=== PATIENT | male | born 1995 | race African-American/Black ===

== ENCOUNTER 2018-09-26 16:23 | Emergency (ER) | payer MEDICAID ==
[~2018-09-26] VITALS: Ht 172.7 cm; Wt 75.0 kg
[2018-09-26] MEDS ORDERED: SODIUM CHLORIDE 0.9% 1,000 ML IV ONE (16:48)
[2018-09-26 17:23] LABS: BASOPHILS % 0.4 % (0.0-2.0); EOSINOPHILS % 0.3 % (0.0-5.0); HEMOGLOBIN. 16.3 g/dL (14.0-18.0); LYMPHOCYTES % 14.4 % (20.0-50.0); MEAN CORPUSCULAR HEMOGLOBIN 28.7 pg (28.0-32.0); MEAN CORPUSCULAR VOLUME 86.2 fL (80.0-94.0); MEAN PLATELET VOLUME 8.8 fl (7.4-10.4); MONOCYTES % 6.1 % (2.0-8.0); NEUTROPHILS % 78.8 % (40.0-76.0); PLATELET 185 x1000/uL (130-400); RED BLOOD CELL COUNT 5.68 mill/uL (4.7-6.1); RED CELL DISTRIBUTION WIDTH 14.8 % (11.6-14.6)
[2018-09-26 17:27] LABS: CHLORIDE 108 mEq/L (98-107)
[2018-09-26] MEDS ORDERED: LORAZEPAM 2MG/ML CPJ IM ONE (17:30)
[2018-09-26] MEDS ORDERED: DIPHENHYDRAMINE 50MG/ML VIAL IM ONE (17:30)
[2018-09-26] MEDS ORDERED: ZIPRASIDONE MESYLATE 20MG/VIAL IM ONE (17:30)
[2018-09-26 17:33] LABS: ETHANOL BLOOD < 10 mg/dL
[2018-09-26] MEDS ORDERED: DIPHENHYDRAMINE 50MG/ML VIAL ONE (17:51)
[2018-09-27 02:57] LABS: *AMPHETAMINES SCREEN URINE PRESUMTIVE POSITIVE (NEGATIVE); *BARBITURATES SCREEN URINE NEGATIVE (NEGATIVE); *BENZODIAZEPINES SCREEN URINE NEGATIVE (NEGATIVE); *COCAINE SCREEN URINE NEGATIVE (NEGATIVE)
[2018-09-27 02:58] LABS: CANNABINOID URINE SCREEN PRESUMTIVE POSITIVE (NEGATIVE); METHADONE URINE SCREEN NEGATIVE (NEGATIVE); OPIATES URINE SCREEN PRESUMTIVE POSITIVE (NEGATIVE); PHENCYCLIDINE URINE SCREEN PRESUMTIVE POSITIVE (NEGATIVE)
[2018-09-27 03:26] LABS: CLARITY URINE CLEAR (CLEAR); COLOR URINE YELLOW (YELLOW); KETONES URINE NEGATIVE (NEGATIVE); LEUKOCYTE ESTERASE URINE 1+ (NEGATIVE); NITRITE URINE NEGATIVE (NEGATIVE); OCCULT BLOOD URINE NEGATIVE (NEGATIVE); PROTEIN URINE NEGATIVE (NEGATIVE); SPECIFIC GRAVITY URINE 1.018 (1.005-1.030)
[2018-09-27] MEDS ORDERED: LORAZEPAM 1MG TABLET PO ONE (03:30)
[2018-09-27 04:30] VITALS: BP 122/67
== END 2018-09-27 05:34 | disposition home or self-care (01) ==
LOC: ER 16:23
DX: T65.91XA Toxic effect of unspecified substance, accidental (unintentional), initial encounter (principal); F12.10 Cannabis abuse, uncomplicated; F19.10 Other psychoactive substance abuse, uncomplicated; F11.10 Opioid abuse, uncomplicated; F15.10 Other stimulant abuse, uncomplicated; Y92.89 Other specified places as the place of occurrence of the external cause
CPT/HCPCS: 36415; 80053; 80305; 81003; 85025; 96361; 96372; 99284; G0482; J1200; J2060; J3486; J7030; A4315

== ENCOUNTER 2018-09-27 16:22 | Emergency (ER) | payer MEDICAID ==
[~2018-09-27] VITALS: Ht 172.7 cm; Wt 75.0 kg
[2018-09-27] MEDS ORDERED: LORAZEPAM 2MG/ML CPJ IM STA (16:28)
[2018-09-27] MEDS ORDERED: DIPHENHYDRAMINE 50MG/ML VIAL IM STA (16:28)
[2018-09-27] MEDS ORDERED: ZIPRASIDONE MESYLATE 20MG/VIAL IM STA (16:28)
[2018-09-27 17:38] LABS: BASOPHILS % 0.3 % (0.0-2.0); EOSINOPHILS % 0.2 % (0.0-5.0); HEMATOCRIT. 47.9 % (42.0-52.0); HEMOGLOBIN. 15.7 g/dL (14.0-18.0); LYMPHOCYTES % 17.5 % (20.0-50.0); MEAN CORPUSCULAR HEMOGLOBIN 28.5 pg (28.0-32.0); MEAN PLATELET VOLUME 8.9 fl (7.4-10.4); MONOCYTES % 6.9 % (2.0-8.0); NEUTROPHILS % 75.1 % (40.0-76.0); PLATELET 185 x1000/uL (130-400); RED BLOOD CELL COUNT 5.51 mill/uL (4.7-6.1); RED CELL DISTRIBUTION WIDTH 14.9 % (11.6-14.6)
[2018-09-27 17:45] LABS: CHLORIDE 108 mEq/L (98-107)
[2018-09-27 17:47] LABS: *AMPHETAMINES SCREEN URINE PRESUMTIVE POSITIVE (NEGATIVE); *BARBITURATES SCREEN URINE NEGATIVE (NEGATIVE)
[2018-09-27 17:48] LABS: *BENZODIAZEPINES SCREEN URINE NEGATIVE (NEGATIVE); *COCAINE SCREEN URINE NEGATIVE (NEGATIVE); METHADONE URINE SCREEN NEGATIVE (NEGATIVE); OPIATES URINE SCREEN PRESUMTIVE POSITIVE (NEGATIVE); PHENCYCLIDINE URINE SCREEN PRESUMTIVE POSITIVE (NEGATIVE)
[2018-09-27 17:50] LABS: ETHANOL BLOOD < 10 mg/dL
[2018-09-27 18:00] LABS: CANNABINOID URINE SCREEN PRESUMTIVE POSITIVE (NEGATIVE)
[2018-09-27 22:30] VITALS: BP 112/57
== END 2018-09-28 00:49 | disposition home or self-care (01) ==
LOC: ER 16:22
DX: F19.10 Other psychoactive substance abuse, uncomplicated (principal); F12.10 Cannabis abuse, uncomplicated; F15.10 Other stimulant abuse, uncomplicated; F11.10 Opioid abuse, uncomplicated; F16.10 Hallucinogen abuse, uncomplicated
CPT/HCPCS: 36415; 80053; 80305; 85025; 96372; 99283; G0482; J1200; J2060; J3486

== ENCOUNTER 2020-12-14 04:29 | Emergency (ER) | payer MEDICAID ==
[~2020-12-14] VITALS: Ht 170.2 cm; Wt 73.0 kg
[2020-12-14 05:44] LABS: BASOPHILS % 0.6 % (0.0-2.0); HEMOGLOBIN. 13.5 g/dL (14.0-18.0); MEAN CORPUSCULAR HEMOGLOBIN 28.5 pg (28.0-32.0); MEAN CORPUSCULAR VOLUME 84.2 fL (80.0-94.0); MEAN PLATELET VOLUME 9.2 fl (7.4-10.4); MONOCYTES % 10.4 % (2.0-8.0); PLATELET 169 x1000/uL (130-400); RED BLOOD CELL COUNT 4.75 mill/uL (4.7-6.1); RED CELL DISTRIBUTION WIDTH 14.5 % (11.6-14.6)
[2020-12-14 05:49] LABS: CHLORIDE 106 mEq/L (98-107)
[2020-12-14 05:53] LABS: ETHANOL BLOOD < 10 mg/dL
[2020-12-14] MEDS ORDERED: OLANZAPINE 10 MG/VIAL IM ONE ×2 (06:00→16:00)
[2020-12-14 08:59] LABS: *COCAINE SCREEN URINE NEGATIVE (NEGATIVE)
[2020-12-14 09:00] LABS: *AMPHETAMINES SCREEN URINE PRESUMTIVE POSITIVE (NEGATIVE); *BARBITURATES SCREEN URINE NEGATIVE (NEGATIVE); *BENZODIAZEPINES SCREEN URINE NEGATIVE (NEGATIVE); CANNABINOID URINE SCREEN PRESUMTIVE POSITIVE (NEGATIVE); METHADONE URINE SCREEN NEGATIVE (NEGATIVE); PHENCYCLIDINE URINE SCREEN PRESUMTIVE POSITIVE (NEGATIVE)
[2020-12-14 09:01] LABS: OPIATES URINE SCREEN NEGATIVE (NEGATIVE)
[2020-12-14 14:30] VITALS: BP 128/84
[2020-12-14] MEDS ORDERED: LORAZEPAM 2MG/ML CPJ IM STA (15:58)
== END 2020-12-14 16:15 | disposition home or self-care (01) ==
LOC: ER 04:29
DX: F16.159 Hallucinogen abuse with hallucinogen-induced psychotic disorder, unspecified (principal); F15.159 Other stimulant abuse with stimulant-induced psychotic disorder, unspecified; F11.159 Opioid abuse with opioid-induced psychotic disorder, unspecified; F12.159 Cannabis abuse with psychotic disorder, unspecified; R03.0 Elevated blood-pressure reading, without diagnosis of hypertension
CPT/HCPCS: 36415; 80053; 80305; 80307; 80320; 80329; 82962; 85025; 93005; 96372; 99285; J2060; J3490; G0480